=== PATIENT | female | born 2000 | race Caucasian/White ===

== ENCOUNTER 2022-04-06 17:22 | Emergency (ER) | payer OTHER, MEDICAID, SELFPAY ==
[2022-04-06 17:48] VITALS: BP 147/64; PULSE 118; RESP 20; TEMP 37.2; O2SAT 97; BMI 44.6
--- NOTE | 2022-04-06 17:58 | DI.RAD.S_ITS ---
PROCEDURE: XR LUMBAR SPINE 2-3V INDICATIONS: trip and fall Monday. c/o lower back pain TECHNIQUE: 3 views of the lumbar spine were acquired. COMPARISON: None. FINDINGS: Bones: 5 [id number] vertebrae are present. There is normal bony alignment. No vertebral body compression fractures. No suspicious bony lesions. Soft tissues: Overlying bowel gas pattern is normal. No suspicious soft tissue calcifications. IMPRESSION: No acute fracture. No osseous lesion. If symptoms and/or clinical suspicion for pathology persist, further assessment with repeat, or advanced imaging (e.g., CT, MRI, or bone scan) may be helpful for further assessment. Dictated by: Brianne Landers M.D. on 04/06/2022 at 18:13 Approved by: Brianne Landers M.D. on 04/06/2022 at 18:13
--- NOTE | 2022-04-06 19:56 | ED.BACK ---
HPI - Back Pain/Injury <Nilam Bonner PA-C - Last Filed: 04/06/22 20:35> General Chief Complaint: Back Pain/Injury Stated Complaint: low back pain Time Seen by Provider: 04/06/22 19:38 Source: patient History of Present Illness HPI Narrative: 21-year-old woman presents with concern for low back pain after sustaining a fall on Monday, 5 days ago. Patient states that she was walking and there was a little plastic great on the ground that tripped her up and caused her to fall onto her right side she landed mostly on her right side back/but it had her arm outstretched she said her head landed in a Lavender blush, she did not hit it on the ground, she did not lose consciousness and has not had any neck pain. Under morning when she woke up she felt achy all over her entire right side and since then has been having back pain low down in the middle but also on the sides. She feels she is walking more slowly and carefully because of this, she sometimes has pain that is sharp that shoots down into her thighs on both sides. She denies any previous injury to her back but does say she has had some occasional issues with back pain in the past. She does not currently have a PCP, she says that she works at [employer] and is on her feet all the time at work. She has treated with ibuprofen with limited relief she denies loss of bowel or bladder function, saddle paresthesia, numbness or tingling in her extremities, weakness, dysuria, flank pain, urgency, frequency, prodrome prior to fall or any other symptoms. MD Complaint: back pain and fall Related Data Previous Rx's Medication Instructions Recorded baclofen 10 mg tablet 10 mg PO TID #30 tabs 04/06/22 lidocaine 5 % topical patch 1 patch topical DAILY #15 ea 04/06/22 Allergies Allergy/AdvReac Type Severity Reaction Status Date / Time Penicillins [PENICILLINS] Allergy Unknown Verified 04/06/22 17:53 Review of Systems <Nilam Bonner PA-C - Last Filed: 04/06/22 20:35> Review of Systems Narrative: Unremarkable except as noted in the HPI Patient History <Nilam Bonner PA-C - Last Filed: 04/06/22 20:35> Social History Smoking Status: Never smoker Smoking Status: Never smoker alcohol intake frequency: a few times a month Substance Use Type: does not use Exam <Nilam Bonner PA-C - Last Filed: 04/06/22 20:35> Narrative Exam Narrative: GENERAL: 21 year old patient appears stated age. Obese, pleasant, Well-developed patient, in mild distress. HEAD: Atraumatic. Normocephalic. EYES: Pupils equal round and reactive. Extraocular motions intact. No scleral icterus. No injection or drainage. ENT: Nose without bleeding, purulent drainage. Throat without erythema, tonsillar hypertrophy or exudate. Airway patent. NECK: Trachea midline. Non tender. No C-spine process tenderness, deformity or step-offs. CARDIOVASCULAR: Regular rate and rhythm without murmurs, gallops, or rubs. RESPIRATORY: Clear to auscultation. Breath sounds equal bilaterally. No wheezes, rales, or rhonchi. GASTROINTESTINAL: Abdomen nondistended. No CVA tenderness. EXTREMITIES: No edema or joint tenderness pedal pulses strong and equal. Sensation is intact. Patient's gait is slightly slow, slightly antalgic. BACK: There is increased low back pain with resisted flexion at the hip, flexion at the knee and extension at the knee. Strength is 4/5 bilaterally at the hips, knees, 5/5 ankles. Upper extremity strength is intact 5/5. There is tenderness over the lumbar spine without deformity or step-offs, L3 through 6. Otherwise Nontender without deformity or crepitance. No flank tenderness. NEURO: AOx3. SKIN: No rash or erythema of visible areas Initial Vital Signs Initial Vital Signs: Vital Signs Temperature 98.9 F 04/06/22 17:48 Pulse Rate 118 H 04/06/22 17:48 Respiratory Rate 20 04/06/22 17:48 Blood Pressure 147/64 H 04/06/22 17:48 Pulse Oximetry 97 04/06/22 17:48 Oxygen Delivery Method 04/06/22 17:48 <Brendon Price DO - Last Filed: 04/07/22 04:33> Initial Vital Signs Initial Vital Signs: Vital Signs Temperature 98.9 F 04/06/22 17:48 Pulse Rate 118 H 04/06/22 17:48 Respiratory Rate 20 04/06/22 17:48 Blood Pressure 147/64 H 04/06/22 17:48 Pulse Oximetry 97 04/06/22 17:48 Oxygen Delivery Method 04/06/22 17:48 Course <Nilam Bonner PA-C - Last Filed: 04/06/22 20:35> Orders Ordered: ED Orders 04/06/22 17:58 XR lumbar spine 2-3V Stat Vital Signs Vital signs: Vital Signs - 8 hr 04/06/22 17:48 Temperature 98.9 F Pulse Rate 118 H Respiratory Rate 20 Blood Pressure 147/64 H Pulse Oximetry 97 Oxygen Delivery Method Room Air <Brendon Price DO - Last Filed: 04/07/22 04:33> Orders Ordered: ED Orders 04/06/22 17:58 XR lumbar spine 2-3V Stat Vital Signs Vital signs: Vital Signs - 8 hr 04/06/22 17:48 Temperature 98.9 F Pulse Rate 118 H Respiratory Rate 20 Blood Pressure 147/64 H Pulse Oximetry 97 Oxygen Delivery Method Room Air MDM - Back Pain/Injury <VALERIA Ward Last Filed: 04/06/22 20:35> Imaging Data X-ray back lumbar: My Impression: I have reviewed the patient's imaging and agree with radiologist's interpretation. Radiologist's Impression: [address] [address] XRay Report Signed Patient: Guanakito Brantley MR#: [id number] : 2000 Acct:[id number] Age/Sex: 21 / F Date of Service: 04/06/22 Loc: ED Accession Number: [id number] ?? Procedure: XR lumbar spine 2-3V Ordering Provider: Korin Hubbard D.O. PROCEDURE:? XR LUMBAR SPINE 2-3V ? INDICATIONS:? trip and fall Monday. c/o lower back pain ? TECHNIQUE:? 3 views of the lumbar spine were acquired.? ? COMPARISON:? None. ? FINDINGS:? ? Bones:? 5 [id number] vertebrae are present.? There is normal bony alignment.? No vertebral body compression fractures.? No suspicious bony lesions.? ? Soft tissues:? Overlying bowel gas pattern is normal.? No suspicious soft tissue calcifications.? ? ? IMPRESSION:? No acute fracture. No osseous lesion. If symptoms and/or clinical suspicion for pathology persist, further assessment with repeat, or advanced imaging (e.g., CT, MRI, or bone scan) may be helpful for further assessment. ? ? Dictated by: Brianne Landers M.D. on 04/06/2022 at 18:13 ? ? Approved by: Brianne Landers M.D. on 04/06/2022 at 18:13?? [facility] Narrative Medical decision making narrative: Well-appearing obese 21-year-old presents with concern for low back pain for about 5 days after sustaining a fall from standing without injury to head or neck. No red flags. Patient does have new tenderness, seems to have slightly reduced strength in the lower extremities concerning for possible disc injury versus sciatic nerve impingement bilaterally. X-ray returns unremarkable, counseled the patient regarding supportive care treatment including Tylenol, ibuprofen, heat, ice, prescription for lidocaine patches, muscle relaxer, patient will take time off work as she has 6 days. Referral to Orthopedics today but patient is advised that if her symptoms are improving, this may not be necessary. Advised her it may take up to about 3 weeks for symptoms to improve. Discharge Plan Departure Patient Disposition: Home Clinical Impression: Back pain due to injury, Muscle spasm of back Instructions: DI for Back Spasm, DI for Back Strain or Sprain Activity Restrictions/Additional Instructions: Thank you for letting us be part of your care in the emergency department today. As we discussed the x-ray today did not show any concerning findings, however occasionally advanced imaging is required to further evaluate. Typically back pain such as yours does resolve within about 3 weeks. And I would expect her symptoms to start improving his soon. If this is not the case or if you develop new concerning symptoms such as loss of bowel or bladder function, numbness or tingling in your groin, new or worsening significant pain unrelieved by [id number]-[id number] medications, fevers, chills, weakness or numbness in your extremities new should present to the emergency department for re-evaluation. Otherwise you may see her primary care provider. I have placed a referral for Orthopedics however am hopeful that this will not be needed assuming that you are improving. Prescriptions: New lidocaine 5 % adhesive patch,medicated 1 patch topical DAILY Qty: 15 1RF Rx Instructions: leave on most painful area for up to 12 hrs baclofen 10 mg tablet 10 mg PO TID Qty: 30 1RF Referrals: Rosa M Harrell MD [Physician] - (Morbidly obese, back pain 2nd to fall, counseled supportive care/treatment however some concern for disc injury. Advised patient to see Ortho if not improving within 3 weeks, or if worsening.) Stand Alone Forms: Work Release Note Visit Report Forms: Patient Portal/API <Brendon Price DO - Last Filed: 04/07/22 04:33> Cosign ED Attending Nerissa Attestation: I was immediately available in the department for consultation. Documentation has been reviewed. I agree with assessment and plan.
== END 2022-04-06 20:23 | disposition home or self-care (01) ==
PROVIDERS: Emergency Provider Student in an Organized Health Care Education/Training Program
DX: S39.92XA Unspecified injury of lower back, initial encounter (principal); M62.830 Muscle spasm of back; M54.50 Low back pain, unspecified; W19.XXXA Unspecified fall, initial encounter
CPT/HCPCS: 72100; 99281; 99283